=== PATIENT | female | born 1965 | race Hispanic/Latino ===

== ENCOUNTER 2022-10-29 08:34 | Outpatient (CLI) | payer BC | END 2022-10-29 08:35 | disposition home or self-care (01) | LOC: CSHMAMMO 08:34 | PROVIDERS: ATTEND Nurse Practitioner Family | DX: Z12.31 Encounter for screening mammogram for malignant neoplasm of breast (principal) | CPT/HCPCS: 77063; 77067 ==

== ENCOUNTER 2023-04-02 10:58 | Outpatient (CLI) | payer BC ==
[2023-04-02] MEDS ORDERED: Iopamidol 300 61% 100 ML VIAL FS ONE (14:23)
== END 2023-04-02 10:59 | disposition home or self-care (01) ==
LOC: CSHCT 10:58
PROVIDERS: ATTEND Nurse Practitioner Family
DX: R59.0 Localized enlarged lymph nodes (principal); J35.1 Hypertrophy of tonsils
CPT/HCPCS: 70491; Q9967